=== PATIENT | male | born 1955 | race Caucasian/White ===

== ENCOUNTER → 2023-04-01 13:15 | Outpatient (REF) | payer OTHER, SELFPAY | LOC: DHCBC MAIN 13:15 | PROVIDERS: ATTENDING PHYSICIAN Internal Medicine; FAMILY PHYSICIAN Physician Assistant Medical | DX: I35.0 Nonrheumatic aortic (valve) stenosis (principal); I77.810 Thoracic aortic ectasia; Z95.3 Presence of xenogenic heart valve | CPT/HCPCS: 93306 ==

== ENCOUNTER → 2023-09-05 06:47 | Outpatient (REF) | payer OTHER, SELFPAY | LOC: RAD 06:47 | PROVIDERS: ATTENDING PHYSICIAN Specialist; FAMILY PHYSICIAN Physician Assistant Medical | DX: N13.4 Hydroureter (principal); N20.1 Calculus of ureter; R10.9 Unspecified abdominal pain | CPT/HCPCS: 76775 ==

== ENCOUNTER → 2024-03-02 13:34 | Outpatient (REF) | payer OTHER, SELFPAY | LOC: RAD 13:34 | PROVIDERS: ATTENDING PHYSICIAN Nurse Practitioner; FAMILY PHYSICIAN Physician Assistant Medical | DX: Z86.79 Personal history of other diseases of the circulatory system (principal) | CPT/HCPCS: 93880 ==

== ENCOUNTER → 2024-04-27 14:49 | Outpatient (REF) | payer OTHER, SELFPAY | LOC: RCS 14:49 | PROVIDERS: ATTENDING PHYSICIAN Nurse Practitioner; FAMILY PHYSICIAN Physician Assistant Medical | DX: I35.0 Nonrheumatic aortic (valve) stenosis (principal) | CPT/HCPCS: 93306 ==